=== PATIENT | female | born 1950 | race African-American/Black ===

== ENCOUNTER 2017-03-25 19:07 | Emergency (ER) | payer MEDICARE ==
[~2017-03-25] VITALS: Ht 154.9 cm; Wt 82.0 kg
[2017-03-25 20:48] LABS: HEMATOCRIT. 36.9 % (36.0-48.0); HEMOGLOBIN. 12.2 g/dL (12.0-16.0); MEAN CORPUSCULAR HEMOGLOBIN 29.5 pg (28.0-32.0); MEAN CORPUSCULAR VOLUME 89.1 fL (81.0-99.0); PLATELET 246 x1000/uL (130-400); RED BLOOD CELL COUNT 4.14 mill/uL (4.2-5.4); RED CELL DISTRIBUTION WIDTH 14.1 % (11.6-14.6)
[2017-03-25 20:49] LABS: CHLORIDE 104 mEq/L (98-107)
[2017-03-25 20:52] LABS: PARTIAL THROMBOPLASTIN TIME 27.5 sec (23.4-31.0); PROTHROMBIN TIME 10.4 sec (9.4-11.6)
[2017-03-25 20:54] LABS: CARBON DIOXIDE 26 mEq/L (21-32)
[2017-03-25 21:01] LABS: TROPONIN I < 0.02 ng/mL (0.00-0.04)
[2017-03-25 21:17] LABS: PLATELET ESTIMATE NORMAL
[2017-03-25] MEDS ORDERED: ONDANSETRON HCL 4MG/2ML VIAL IV ONE (21:30)
[2017-03-25 21:40] VITALS: BP 130/77
== END 2017-03-25 23:14 | disposition home or self-care (01) ==
LOC: ER 20:59
DX: B34.9 Viral infection, unspecified (principal); R07.89 Other chest pain; I10 Essential (primary) hypertension; Z88.0 Allergy status to penicillin
CPT/HCPCS: 36415; 71010; 80053; 83690; 83880; 84484; 85025; 85610; 85730; 93005; 96374; 99285; J2405